=== PATIENT | female | born 1950 | race Caucasian/White ===

== ENCOUNTER → 2017-07-28 | Outpatient (CLI) | payer OTHER | LOC: RAD 07:46 | DX: Z12.31 Encounter for screening mammogram for malignant neoplasm of breast (principal) ==

== ENCOUNTER → 2018-02-13 | Outpatient (CLI) | payer OTHER | LOC: NUC 10:09 | DX: M85.839 Other specified disorders of bone density and structure, unspecified forearm (principal); E55.9 Vitamin D deficiency, unspecified ==

== ENCOUNTER → 2019-03-26 | Outpatient (CLI) | payer OTHER | LOC: MRI 07:08 | DX: M48.02 Spinal stenosis, cervical region (principal); M50.11 Cervical disc disorder with radiculopathy, high cervical region; M43.5X2 Other recurrent vertebral dislocation, cervical region ==

== ENCOUNTER → 2019-04-06 | Outpatient (CLI) | payer OTHER ==
[~2019-04-06] VITALS: Ht 165.1 cm; Wt 86.2 kg
[~2019-04-06] MED LIST: ARMODAFINIL50 MG PO; CALCIUM WITH V1 EAC1 PO; CINNAMON500 MG PO; CLONIDINE HCL0.1 M1 PO; FLEXERIL PO; GLYBURIDE 5 MG T5 M1 PO; IRON160 M1 PO; JANUMET 50-1,01 EACH PO; LEVO-T75 MCG; LISINOPRIL-HCT1 EACH PO; MAGNESIUM250 M1 PO; MELOXICAM7.5 MG PO; NABUMETONE 500500 M1 PO; NEURONTIN 300M300 M2 PO; OCUVITE TABLET1 EAC1 PO; SONATA5 M1 PO; UNICOMPLEX M TA1 TA1 PO; VITAMIN C500 M2 PO; VITAMIN D3250 MC1 PO; VITAMIN D34000 UNIT PO; VYTORIN 10-201 EACH PO; ZINC50 M1 PO
[2019-04-06 08:24] VITALS: BP 110/79
--- NOTE | 2019-04-06 08:49 | NUR ---
Pain Clinic Assessment: 1. History of Osteoarthritis: BILATERAL KNEES SHOULDERS History of Rheumatoid Arthritis: 2. Height: 5 ft. 5 in. 165.1 cm. Weight: 190.0 lb. oz. 86.184 kg. Patient's BMI: 31.6 3. Vital Signs: BP: 110/79 Pulse: 108 Resp: 16 Temp: 02 Sat: 97 ECG Mon: 4. Pain Intensity: 6 5. Fall Risk: Dizziness: Y Needs help standing or walking: N Fallen in the last 3 months: N Fall risk comments: 6. Patient on Blood Thinner: None 7. History of Hypertension: Y 8. Opioid Therapy greater than 6 weeks: N Opiate Contract Signed: 9. Risk Assessment Tool Provided: 1-LOW RISK 10. Functional Assessment Tool: 11. Recreational Drug Use: Never Drug Type: Tobacco Use: Former Smoker Tobacco Type: Amount or Packs/day: How Many Years: Alcohol Use: Yes Frequency: Special Occasions Quant:
--- NOTE | 2019-04-13 07:45 | HPC ---
[facility] [place] [address] PAIN MANAGEMENT CONSULTATION Name: CHILO BOWENS rIma Room #: REG [facility] Tina.#: [id number] Admission: 04/06/19 Attend Phys: Patricio Fong DO Discharge: Date of : 54 Report #: [id number] THIS REPORT FOR: cc: Glen Enciso MD, Kimberly A. MD Johnson, James E. DO ~ THIS REPORT FOR: //name// DATE OF SERVICE: 04/06/2019 CHIEF COMPLAINT: Right shoulder pain. HISTORY OF PRESENT ILLNESS: As you know, the patient is a very pleasant 68-year-old female who reports acute onset of right shoulder pain began on 12/06/2018. The patient has known cervical radiculopathy for which she has been dealing with symptoms for years. She states the pain that she began to experience in 11/2018 is very different from her typical cervical radicular symptoms. Pain is exacerbated with movement of the shoulder as well as trying to lift objects with the right arm. She is able to localize pain directly over the shoulder itself. She has discussed her case with her primary care after trialing [id number] medications for pain control. She did not see improvement with more conservative options and then was subsequently referred to undergo MRI of the cervical spine. The findings of the cervical spine were such that the patient was referred to our clinic to discuss treatment options. The patient indicates the pain is continuous with periodic exacerbations of symptoms. She describes the pain as shooting, aching, and stabbing. She does not describe any numbness or tingling with this new onset of symptoms. She has had numbness and tingling in the past and this continues in her typical cervical radicular fashion. She places her current pain score 6/10, daily average is 7/10, worst pain has been is 9/10. The patient again states that her pain is exacerbated with lifting, reaching, and utilizing her right arm. Nothing appears to improve pain. She has been referred to our service to discuss treatment options for suspected cervical radiculopathy. PAST MEDICAL HISTORY: 1. Diabetes mellitus type 2. 2. Hypertension. 3. Thyroid disease. 4. Degenerative joint disease. 5. Osteoarthritis. 6. Insomnia. 7. Dyslipidemia. [address] [address] PAIN MANAGEMENT CONSULTATION Name: CHILO BOWENS Room #: REG ALINE Mcdowell#: [id number] Admission: 04/06/19 Attend Phys: Patricio Fong DO Discharge: Date of : 54 Report #: [id number] PAST SURGICAL HISTORY: 1. Arthroscopy of the left knee in 2001. 2. Thyroid lumpectomy in 2007. 3. Right knee arthroscopy 2019. SOCIAL HISTORY: The patient denies tobacco, IV, or illicit drug use. Admits to occasional alcohol beverage. 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 She is not in litigation in regards to pain. She is unaccompanied at today's visit. REVIEW OF SYSTEMS: Positive for headaches, wearing corrective eyewear, chronic sinus problems with rhinitis, heart trouble in the form of a murmur, nocturia, rash and itching, frequent and recurrent headaches, vestibular weakness, numbness and tingling sensations in the arms from chronic radiculopathy, head injury, thyroid disease, non-insulin dependent diabetes. All other review of systems negative per 12-point review of systems other than those listed in history of present illness. Pain impact score 38 of 70 indicating moderate interference of daily activities secondary to pain. ALLERGIES: No reported drug allergies. CURRENT MEDICATIONS: Vytorin 10/20 one tab per day, vitamin D 50,000 units every other month, clonidine 0.1 mg once a day, lisinopril 10 mg per day, meloxicam 7.5 mg once a day, levothyroxine 137 mcg per day, zaleplon 5 mg once a day, gabapentin 300 mg once a day, ____ 60 mg once a day, Janumet mg twice a day, cyclobenzaprine 10 mg once a day, glyburide 2.5 mg one-half tab per day, multivitamin 1 tab per day, vitamin C, vitamin D, iron, magnesium, zinc, Ocuvite, and cinnamon once a day. IMAGING: MRI of cervical spine obtained on 03/26/2019 shows extensive multilevel severe neural foraminal stenosis at C3-C4, C4-C5, C5-C6, C6-C7 with [id number] thecal sac stenosis at C3-C4, mild anterior subluxation of C3 on C4 of approximately 3 mm. Degenerative changes noted throughout the cervical spine. EMG of the upper extremities shows chronic radiculopathies involving the C5-C6 distribution. PHYSICAL EXAMINATION: VITAL SIGNS: Blood pressure 110/79, pulse 108, respiratory rate 16, and unlabored. The patient is 97% on room air. Height 5 feet 5 inches tall, weight 190 pounds, and BMI calculated 31.3. GENERAL: Well-developed, well-nourished, well-hydrated 68-year-old female, appearing stated age, placing current pain score at 6/10. HEENT: Normocephalic, atraumatic. Pupils are equal, round, reactive to light. [facility] [address] [place] [address] PAIN MANAGEMENT CONSULTATION Name: CHILO BOWENS [id number] Admission: 04/06/19 Attend Phys: Patricio Fong DO Discharge: Date of : 54 Report #: [id number] Extraocular muscles are intact. Sclerae nonicteric without injection. NEUROLOGIC: Cranial nerves 2-12 grossly intact. Speech fluent. The patient deemed a good historian. LUNGS: Clear, no wheeze, rhonchi or rales. CARDIOVASCULAR: Tachycardic. No appreciable gallop. Mild noted murmur. ABDOMEN: Soft, nontender, nondistended. EXTREMITIES: Show no clubbing, no cyanosis, and no edema. MUSCULOSKELETAL: The patient has palpatory tenderness over the right shoulder. Active and passive range of motion of the right shoulder causes intensification of pain. Abduction of the shoulder causes pain between approximately 60 degrees to 110 degrees. Liftoff test with hand behind the back causes an intrinsic shoulder pain. Cervical provocation testing is met with typical cervical pain. Spurling's test remains positive. Upper extremity strength appears symmetrical, though there is giveaway strength noted with biceps flexion on the right when compared to left due to generated pain in the shoulder. ASSESSMENT: 1. Right shoulder pain. 2. Right shoulder osteoarthritic changes. 3. Chronic cervical radiculopathy. 4. Displacement of cervical intervertebral disk with radiculopathy. 5. Severe neural foraminal stenosis of the cervical spine. 6. Central canal stenosis of the cervical spine. PLAN: 1. Based on today's physical exam and history, the patient has provided the description the patient uses in regards to pain. It would appear her symptoms are related more to mechanical forces in the right shoulder than a cervical radiculopathy. This is shown with the provocation testing done on the right shoulder when compared to left. Dermatomal distribution is not present in the shoulder. She does have typical radicular symptoms consistent with C5 and C6 dermatomes based on EMG, though these are chronic in nature and according to the patient are completely different pain signals than what she is experiencing in the shoulder with lifting and utilizing her right arm. We do not have imaging of the right shoulder to confirm the extent of Pathology that may be present, though the provocating examination would indicate intrinsic shoulder pathology. We discussed with the patient treatment options for her right shoulder pain today. The following was discussed with the patient. We discussed physical therapy, stretching exercises, and strengthening techniques as well as mobility techniques to increase range of motion. We discussed medication management using either topical agents directly to the shoulder or oral agents in the anti-inflammatory family to improve shoulder pain. We discussed intra-articular shoulder injections as an option for treatment and ultimately surgical repair. After reviewing the risks and benefits of all the proposed treatment options, the patient chose to undergo [address] [address] PAIN MANAGEMENT CONSULTATION Name: BOWENSCHILO B Room #: REG ALINE Mcdowell#: [id number] Admission: 04/06/19 Attend Phys: Patricio Fong DO Discharge: Date of : 54 Report #: [id number] intra-articular shoulder injection under fluoroscopic guidance. 2. Due to third green party payer restrictions, authorization will have to be obtained before the patient could undergo a right intra-articular shoulder injection. We will begin the authorization process immediately. We are hopeful to have this authorization done quickly and have the patient return to undergo the injection to determine if her symptoms will be amenable to injections within the right shoulder. 3. We have taken the liberty of starting the patient on nabumetone 500 mg dose 1 tab p.o. t.i.d. with meals. I have given the patient #90 tablets. We have advised the patient to watch for dyspepsia, worsening of blood pressure, and lower extremity edema with its use. If she notes any side effects, discontinue immediately and call for further instructions. 4. We did discuss with the patient the findings of her cervical MRI. It does appear she has chronic C5-C6 cervical radiculopathy, though given the findings on exam today, it would appear that she does have cervical radicular symptoms, which are present on a daily basis, but are unrelated to this current right shoulder pain. I do feel that she has both cervical radiculopathy, which has been chronic in nature and intrinsic right shoulder pathology likely due to arthritic changes and possible rotator cuff injury based on the testing today. We will keep you apprised of response to treatment for the right shoulder that is her most problematic pain generator at present. 5. We wish to thank Dr. Enciso for the referral of the patient to our clinic. We will keep you apprised of her response to treatment of both the right shoulder and cervical radiculopathy as we address each issue. Again, we wish to thank you for the opportunity to see the patient in consultation. <ELECTRONICALLY SIGNED> By: Patricio Fong DO 04/13/19 0745 [id number] Patricio Fong DO /nt
== END ==
LOC: PAIN 06:46
DX: M19.011 Primary osteoarthritis, right shoulder (principal); M50.11 Cervical disc disorder with radiculopathy, high cervical region; M48.02 Spinal stenosis, cervical region; E11.9 Type 2 diabetes mellitus without complications; I10 Essential (primary) hypertension; E07.89 Other specified disorders of thyroid; M19.90 Unspecified osteoarthritis, unspecified site; E78.5 Hyperlipidemia, unspecified; Z79.899 Other long term (current) drug therapy

== ENCOUNTER → 2019-04-14 | Outpatient (CLI) | payer OTHER ==
[~2019-04-14] VITALS: Ht 165.1 cm; Wt 88.3 kg
[2019-04-14 14:07] VITALS: BP 115/85
--- NOTE | 2019-04-14 14:24 | NUR ---
Pain Clinic Assessment: 1. History of Osteoarthritis: BILATERAL KNEES SHOULDERS History of Rheumatoid Arthritis: 2. Height: 5 ft. 5 in. 165.1 cm. Weight: 194.6 lb. oz. 88.270 kg. Patient's BMI: 32.4 3. Vital Signs: BP: 115/85 Pulse: 92 Resp: 14 Temp: 02 Sat: 98 ECG Mon: 4. Pain Intensity: 4-5 5. Fall Risk: Dizziness: Y Needs help standing or walking: N Fallen in the last 3 months: N Fall risk comments: 6. Patient on Blood Thinner: None 7. History of Hypertension: Y 8. Opioid Therapy greater than 6 weeks: N Opiate Contract Signed: 9. Risk Assessment Tool Provided: 1-LOW RISK 10. Functional Assessment Tool: 11. Recreational Drug Use: Never Drug Type: Tobacco Use: Former Smoker Tobacco Type: Amount or Packs/day: How Many Years: Alcohol Use: Yes Frequency: Monthly Quant: 1-2
--- NOTE | 2019-04-20 08:27 | HPC ---
[facility] [place] [address] [place] [address] PAIN MANAGEMENT CONSULTATION Name: CHILO BOWENS Room #: REG [facility].#: [id number] Admission: 04/14/19 Attend Phys: Patricio Fong DO Discharge: Date of : 54 Report #: [id number] THIS REPORT FOR: cc: Glen Enciso MD, Kimberly A. MD Johnson, James E. DO ~ DATE OF SERVICE: 04/14/2019 REFERRING PHYSICIAN: Dr. Glen Enciso. CHIEF COMPLAINT: Right shoulder pain. HISTORY OF PRESENT ILLNESS: As you know, the patient is a very pleasant 68-year-old female who was seen in consultation per the request of Dr. Glen Enciso on 04/06/2019. At that visit, she was being evaluated for cervical radiculopathy, though her right shoulder pain was believed to be due to right shoulder pathology. The physical exam as well as the descriptors the patient used led to a diagnosis of right shoulder pain due to osteoarthritis and possible rotator cuff injury. She returns today, having received authorization to undergo an intra-articular right shoulder injection under fluoroscopic guidance to address this pain issue. She has denied any injury or trauma that may have led to symptom development. She has had no changes in medication management since our visit of 04/06/2019. ALLERGIES: No drug allergies. CURRENT MEDICATIONS: Vytorin, vitamin D, clonidine, lisinopril, meloxicam, levothyroxine, zaleplon, gabapentin, Janumet, cyclobenzaprine, glyburide, vitamin C, vitamin D, iron, magnesium, zinc, Ocuvite and cinnamon, armodafinil 67 mg once a day. SOCIAL HISTORY: The patient denies tobacco, IV or illicit drug use. Admits to occasional alcohol beverage. 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 IMAGING: No new imaging available. PHYSICAL EXAMINATION: VITAL SIGNS: Blood pressure 115/85, pulse 92, respiratory rate 14 and unlabored. The patient is 98% on room air. Height 5 feet 5 inches tall, weight 194.6 pounds, BMI calculated 32.4. GENERAL: Well-developed, well-nourished, well-hydrated 68-year-old female, appearing stated age, placing current right shoulder pain at 4/10 to 5/10. HEENT: Normocephalic, atraumatic. Pupils equal, round, reactive to light. [address] [address] PAIN MANAGEMENT CONSULTATION Name: CHILO BOWENS Room #: REG [facility].#: [id number] Admission: 04/14/19 Attend Phys: Patricio Fong DO Discharge: Date of : 54 Report #: [id number] EXTREMITIES: Show no clubbing, no cyanosis and no edema. MUSCULOSKELETAL: The patient again has palpatory tenderness over the right shoulder. Active and passive range of motion of the right shoulder causes intensification of pain. Abduction of the shoulder between approximately 50 to 60 degrees, all the way to 110 degrees cause intensification of pain. Liftoff test with hand behind the back causes shoulder pain. ASSESSMENT: 1. Right shoulder pain. 2. Right shoulder osteoarthritic changes. 3. Right shoulder rotator cuff injury. 4. Chronic intractable pain. 5. Chronic cervical radiculopathy. 6. Displacement of cervical intervertebral disk with previous radiculopathy. 7. Severe neural foraminal stenosis of the cervical spine. 8. Central canal stenosis of the cervical spine. PLAN: 1. The patient returns today in followup visit, having received authorization to undergo right intra-articular shoulder injection under fluoroscopic guidance. It does appear again from today's physical exam, the history she provides and the descriptors she uses that the shoulder is the source of recurrent pain. Though she does have underlying cervical radiculopathy, this is a pain that she indicates is not her typical cervical radicular symptoms that is well tolerated. She and I at last visit discussed treatment options for right shoulder pain, and she chose to undergo a right intra-articular shoulder injection. We have achieved this authorization today. - The patient has been advised of the risks and benefits of a right intra-articular shoulder injection. These risks include but are not necessarily limited to bleeding, bruising, infection, worsening pain, no relief of pain; also risk of temporary or permanent muscle weakness, temporary or permanent nerve damage, possible joint destruction and . The patient states understood and wished to proceed. 2. No medication changes made at today's visit. The patient will continue current medical therapy as previously prescribed. 3. We will see the patient back in followup visit on an as needed basis to address her right shoulder pain or any cervical radicular symptoms noted. PROCEDURE PERFORMED: Right intra-articular shoulder injection under fluoroscopic guidance. PROCEDURE IN DETAIL: After obtaining written consent, the patient was taken back to the fluoroscopy suite, placed in a supine position. The image intensifier/fluoroscopic imaging camera was brought into position over the right shoulder, and imaging was obtained in an AP fashion. The area overlying the site of injection was then marked with a marker and then prepped sterilely with [address] [address] PAIN MANAGEMENT CONSULTATION Name: CHILO BOWENS Room #: REG [facility]#: [id number] Admission: 04/14/19 Attend Phys: Patricio Fong DO Discharge: Date of : 54 Report #: [id number] chlorhexidine. A 27-gauge 1-1/4 inch needle was then used to anesthetize the skin and subcutaneous tissue with 3 mL of 1% lidocaine. A 27-gauge 1-1/4 inch needle was then used to advance into the right shoulder. Needle was advanced until reaching the proximal head of the humerus. Once reaching the osseous structure, the needle was retracted approximately 1 mm and aspiration noted to be negative for heme. After negative aspiration for heme, 3 mL of a solution containing 1 mL 40 mg per mL, 40 mg total triamcinolone along with 2 mL bupivacaine 0.5% was injected slowly. Needle was then retracted approximately half way, flushed with 1 mL of 1% lidocaine and then removed. Sterile bandage was placed over the injection site. There were no new motor deficits present in the right upper extremity following procedure. The patient tolerated procedure well, carefully escorted to recovery room in stable condition. No apparent complications. After meeting discharge criteria, the patient discharged home. <ELECTRONICALLY SIGNED> By: Patricio Fong DO 04/20/19 0827 [id number] Patricio Fong, DO /nt
== END | disposition home or self-care (01) ==
LOC: PAIN 07:00
DX: M25.511 Pain in right shoulder (principal); M19.011 Primary osteoarthritis, right shoulder; G89.29 Other chronic pain; M75.101 Unspecified rotator cuff tear or rupture of right shoulder, not specified as traumatic; M50.10 Cervical disc disorder with radiculopathy, unspecified cervical region; M48.02 Spinal stenosis, cervical region; Z87.891 Personal history of nicotine dependence; Z79.899 Other long term (current) drug therapy

== ENCOUNTER → 2019-11-03 | Outpatient (CLI) | payer OTHER ==
[~2019-11-03] VITALS: Ht 170.2 cm; Wt 86.6 kg
[2019-11-03 13:53] VITALS: BP 121/86
--- NOTE | 2019-11-03 13:58 | NUR ---
Pain Clinic Assessment: 1. History of Osteoarthritis: BILATERAL KNEES SHOULDERS History of Rheumatoid Arthritis: Not Applicable 2. Height: 5 ft. 7 in. 170.2 cm. Weight: 191.0 lb. oz. 86.637 kg. Patient's BMI: 29.9 3. Vital Signs: BP: 121/86 Pulse: 78 Resp: 16 Temp: 02 Sat: 98 ECG Mon: 4. Pain Intensity: 5 5. Fall Risk: Dizziness: N Needs help standing or walking: N Fallen in the last 3 months: N Fall risk comments: 6. Patient on Blood Thinner: None 7. History of Hypertension: Y 8. Opioid Therapy greater than 6 weeks: N Opiate Contract Signed: 9. Risk Assessment Tool Provided: 1-LOW RISK 10. Functional Assessment Tool: 11. Recreational Drug Use: Never Drug Type: Tobacco Use: Former Smoker Tobacco Type: Amount or Packs/day: How Many Years: Alcohol Use: Yes Frequency: Weekly Quant: 4-6
--- NOTE | 2019-11-09 10:42 | HPC ---
[facility] [place] [address] PAIN MANAGEMENT CONSULTATION Name: CHILO BOWENS Room #: [facility] [id number] Admission: 11/03/19 Attend Phys: Patricio Fong DO Discharge: Date of : 54 Report #: [id number] THIS REPORT FOR: cc: Lazara Cornejo MD, Kimberly A. MD Johnson, James E. DO ~ DATE OF SERVICE: 11/03/2019 REFERRING PHYSICIAN: Glen Enciso MD CHIEF COMPLAINT: Right shoulder pain. HISTORY OF PRESENT ILLNESS: As you know, the patient is a very pleasant 69-year-old female who has returned today in followup visit with recurrence of right shoulder pain. She underwent an intraarticular shoulder injection at her last visit with 100% improvement in overall pain lasting for 4 months. She returns today in followup visit to undergo next in the series of intraarticular shoulder injections. She is placing pain score 5/10. She describes the pain as shooting, sharp, stabbing and aching, exacerbated with movement, lifting and reaching. She returns today for intraarticular right shoulder injection. ALLERGIES: No known drug allergies. CURRENT MEDICATIONS: Nabumetone 500 mg twice a day, cinnamon bark 500 mg once a day, Ocuvite 1 tablet per day, zinc 50 mg per day, magnesium 250 mg per day, calcium carbonate 1 tab per day, iron supplement 160 mg once a day, ascorbic acid 500 mg twice a day, multivitamin 1 tab per day, cyclobenzaprine 10 mg b.i.d., Janumet mg __ twice a day, gabapentin 300 mg p.o. q.a.m., Sonata 5 mg once a day, levothyroxine 75 mcg per day, lisinopril/hydrochlorothiazide 10/12.5 mg once a day, clonidine 0.5 mg once a day, cholecalciferol 4000 units per day, and Vytorin 12/06 1 tab per day. SOCIAL HISTORY: The patient denies tobacco, IV or illicit drug use. She admits to occasional alcohol beverage. She is now retired. She is unaccompanied at today's visit. IMAGING: No new imaging available. PQRS: The patient has arthritic changes of the bilateral shoulders, cervical spine, lumbar spine. No rheumatoid arthritis. She is placing pain intensity today at 5/10. She is not a fall risk, has not had a fall in last 3 months. She is not on blood thinners, but is treated for hypertension. She is not on chronic opioids, has a low opioid addiction potential. Pain impact today is 30/70, moderate interference of daily activities secondary to pain. [address] [address] PAIN MANAGEMENT CONSULTATION Name: CHILO BOWENS Room #: REG [facility]#: [id number] Admission: 11/03/19 Attend Phys: Patricio Fong DO Discharge: Date of : 54 Report #: [id number] PHYSICAL EXAMINATION: VITAL SIGNS: Blood pressure 121/86, pulse is 78, respiratory rate 16 and unlabored. The patient is 98% on room air. Height 5 feet 7 inches tall, weight 191 pounds, BMI calculated 29.9. GENERAL: Well-developed, well-nourished, well-hydrated, 69-year-old female appearing stated age, pain is rated today 5/10. HEENT: Normocephalic, atraumatic. Pupils equal, round and reactive. EXTREMITIES: Show no clubbing, no cyanosis, no edema. MUSCULOSKELETAL: Upper extremity strength appears symmetrical 5/5. Muscle bulk and tone is equal and symmetrical. There is giveaway weakness noted with abduction of the shoulder on the right when compared to left. Pain is elicited with this maneuver at about [address] way to about 110. Liftoff test with hand behind the back causes shoulder pain consistent with a rotator cuff injury. ASSESSMENT: 1. Right shoulder pain. 2. Right shoulder osteoarthritic changes. 3. Right shoulder rotator cuff injury. 4. Chronic intractable pain. 5. History of cervical radiculopathy. 6. Severe neural foraminal stenosis of cervical spine. 7. Central canal stenosis of cervical spine. 8. Cervical spondylosis with radiculopathy. PLAN: 1. The patient has returned today in followup visit having noted 4 months of improvement with the intraarticular shoulder injection provided at last visit. She is very pleased with response to this injection, returning today in followup visit to undergo next in the series. She denies new injury or trauma that may have led to symptom reoccurrence. She has been advised of the risks and benefits of this procedure. These risks include but are not necessarily limited to bleeding, bruising, infection, worsening pain, no relief of pain, also risk of temporary or permanent muscle weakness, temporary or permanent nerve damage, possible joint destruction and . The patient states understood and wished to proceed. 2. No medication changes made at today's visit. The patient will continue current medical therapy as prior prescribed. 3. We will see the patient back in followup visit on an as needed basis for possible next in the series of right intraarticular shoulder injections. We are hopeful the patient will see good and prolonged benefit with today's procedure to address right shoulder pain. PROCEDURE: Right intraarticular shoulder injection under fluoroscopic guidance. DESCRIPTION OF PROCEDURE: After obtaining written consent, the patient was [facility] [place] [address] PAIN MANAGEMENT CONSULTATION Name: CHILO BOWENS Room #: REG [facility]#: [id number] Admission: 11/03/19 Attend Phys: Patricio Fong DO Discharge: Date of : 54 Report #: [id number] taken back to fluoroscopy suite, placed in supine position. The image intensifier/C arm was brought into position over the right shoulder and AP imaging was obtained. The area overlying the injection site was then marked with a skin marker then prepped sterilely with chlorhexidine. A 27-gauge 1-1/4 inch needle was then used to anesthetize skin and subcutaneous tissue with 3 mL of 1% lidocaine. A second 27-gauge 1-1/4 inch needle was then used to advance into the right shoulder. Needle was advanced until reaching the proximal head of the humerus. Once reaching the osseous structure, the needle was then retracted approximately 1 mm. After negative aspiration for heme, 3 mL of a solution containing 1 mL, 40 mg per mL, 40 mg total triamcinolone, 2 mL bupivacaine 0.5% was injected slowly. Needle was retracted approximately half way, flushed with 1 mL of 1% lidocaine and then removed. Sterile bandage placed over injection site. No new motor deficits present in the upper extremities following procedure. The patient tolerated procedure well, carefully escorted to recovery room in stable condition. No apparent complication. After meeting discharge criteria, the patient discharged home. <ELECTRONICALLY SIGNED> By: Patricio Fong DO 11/09/19 [id number] Patricio Fong DO /nt
== END | disposition home or self-care (01) ==
LOC: PAIN 10-26 13:56
PROVIDERS: ATTEND Anesthesiology Pain Medicine
DX: M25.511 Pain in right shoulder (principal); M19.011 Primary osteoarthritis, right shoulder; G89.29 Other chronic pain; I10 Essential (primary) hypertension; M19.90 Unspecified osteoarthritis, unspecified site; S46.001A Unspecified injury of muscle(s) and tendon(s) of the rotator cuff of right shoulder, initial encounter; M48.02 Spinal stenosis, cervical region; M47.22 Other spondylosis with radiculopathy, cervical region; Z98.890 Other specified postprocedural states; Z79.899 Other long term (current) drug therapy; Z87.891 Personal history of nicotine dependence; X58.XXXA Exposure to other specified factors, initial encounter; Y93.9 Activity, unspecified; Y92.89 Other specified places as the place of occurrence of the external cause; Y99.8 Other external cause status

== ENCOUNTER → 2020-04-05 | Outpatient (CLI) | payer OTHER, MEDICARE ==
[~2020-04-05] VITALS: Ht 170.2 cm; Wt 82.5 kg
[~2020-04-05] MED LIST changes: +HYDROCODON-ACE1 EAC7 PO; +NABUMETONE 500500 M2 PO
--- NOTE | ~2020-04-05 | HPC ---
[facility] [place] [address] PAIN MANAGEMENT CONSULTATION Name: CHILO BOWENS Room #: REG [facility] Tina.#: [id number] Admission: 04/05/20 Attend Phys: Patricio Fong DO Discharge: Date of : 54 Report #: [id number] THIS REPORT FOR: cc: Lazara Cornejo MD, Kimberly A. MD Johnson, James E. DO ~ DATE OF SERVICE: 04/05/2020 REFERRING PHYSICIAN: Glen Enciso M.D. CHIEF COMPLAINT: Right greater trochanteric bursa pain. HISTORY OF PRESENT ILLNESS: As you know, the patient is a very pleasant 69-year-old female who has undergone a right intra-articular shoulder injection at her last visit with excellent improvement in overall pain. The patient is experiencing decrease in pain of 75% with the intra-articular shoulder injection. Unfortunately, she continues to experience right greater trochanteric bursitis. She is placing her current pain score at approximately 5/10. She returns today in followup visit to discuss injection to address the bursitis pain on the right. She denies injury or trauma. ALLERGIES: No known drug allergies. CURRENT MEDICATIONS: See chart. SOCIAL HISTORY: The patient denies tobacco, IV or illicit drug use. Admits to an occasional alcohol beverage. She is retired, unaccompanied today. IMAGING: No new imaging available. PQRS: The patient has known arthritic changes of bilateral shoulders, cervical spine, lumbar spine. No rheumatoid arthritis. She is placing current pain intensity at 5/10, not a fall risk, has not had a fall in last 3 months. She is not on blood thinners, but is treated for hypertension. She is not on opioids, has a low opioid addiction potential. Pain impact is 30/70, moderate interference of daily activities secondary to pain. PHYSICAL EXAMINATION: VITAL SIGNS: Blood pressure 127/98, pulse is 116, respiratory rate 20 and unlabored. The patient is 98% on room air. Height 5 feet 7 inches tall, weight 181.8 pounds, BMI calculated 28.5. GENERAL: Well-developed, well-nourished, well-hydrated 69-year-old female appearing stated age, pain is rated around 5/10. HEENT: Normocephalic, atraumatic. Pupils are round. Speech is fluent. The patient is wearing a mask in compliance with COVID-19 regulations. EXTREMITIES: Show no clubbing, no cyanosis, no edema. [facility] [address] [place] [address] PAIN MANAGEMENT CONSULTATION Name: CHILO BOWENS Room #: [facility]#: [id number] Admission: 04/05/20 Attend Phys: Patricio Fogn DO Discharge: Date of : 54 Report #: [id number] MUSCULOSKELETAL: The patient has tenderness to palpation over the greater trochanteric bursa on the right, negative left. Deep palpation in area causes intensification of pain. Dinora's test is negative for any intrinsic hip pathology. ASSESSMENT: 1. Right greater trochanteric bursitis. 2. Right hip pain. 3. Chronic intractable pain. 4. Chronic right shoulder pain secondary to osteoarthritis and rotator cuff injury. PLAN: 1. The patient returns today in followup visit to address her right greater trochanteric bursitis. We discussed treatment options with the patient at our last visit to address this issue and she has returned today to further discuss this issue. She is placing her current pain score at around 5/10. She is reporting pain is exacerbated with certain activities and lying on her side. She returns today to undergo treatment for right greater trochanteric bursitis. The patient and I did discuss the treatment options available for greater trochanteric bursitis. These would include physical therapy, stretching exercises and mobility techniques as well as addressing the iliotibial band. We discussed medication management utilizing oral steroids and a nonsteroidal anti-inflammatory. We discussed intrabursal injection and ultimately bursectomy. After reviewing the risks and benefits of all proposed treatment options, the patient chose to undergo a right intrabursal injection of the greater trochanteric bursa. 2. The patient was advised risks and benefits of a greater trochanteric bursa injection. These risks include but are not necessarily limited to bleeding, bruising, infection, worsening pain, no relief of pain, also risk of temporary or permanent muscle weakness, temporary or permanent nerve damage and possible allergic reaction to medications. The patient states understood and wished to proceed. 3. No medication changes made at today's visit. The patient will continue current medical therapy as prior prescribed. We did renew the patient's nabumetone 500 mg dose. She is not to take any other nonsteroidal anti-inflammatory with this therapy. 4. We will see the patient back in followup visit on an as needed basis to either address the right shoulder pain that she has for that is residual or possibly a second treatment for the greater trochanteric bursa on the right. PROCEDURE NOTE DESCRIPTION OF PROCEDURE: Right greater trochanteric bursa injection under [facility] [address] [place] [address] PAIN MANAGEMENT CONSULTATION Name: CHILO BOWENS Room #: REG [facility]steadHer[facility]#: [id number] Admission: 04/05/20 Attend Phys: Patricio Fong DO Discharge: Date of : 54 Report #: [id number] fluoroscopic guidance. After obtaining written consent, the patient was placed in a left lateral decubitus position. The patient was lying on the unaffected side with lower hip and knee flexed and the upper hip and knee extended. The greater trochanteric bursa was palpated using a single finger and marked with a marker. The area was then prepped and draped in aseptic fashion using chlorhexidine. AP imaging was obtained to confirm the position of the greater trochanter. A 27-gauge 1-1/4 inch needle was then used to anesthetize skin and subcutaneous tissue with 3 mL of 1% lidocaine. A 22-gauge 3-1/2 inch spinal needle with bent tip was advanced towards the greater trochanter under fluoroscopic imaging. Needle was advanced until reaching the greater trochanter and retracted 1 mm. After negative aspiration for heme, 0.5 mL of Omnipaque injected demonstrating an excellent bursal gram. After negative aspiration for heme, 4 mL of solution containing 1 mL 40 mg per mL, 40 mg total triamcinolone and 3 mL of bupivacaine 0.5% injected slowly. Needle retracted correction, flushed with 1 mL of 1% lidocaine, then removed. Sterile bandage placed over injection site. No new motor deficits present in the lower extremity following procedure. The patient tolerated procedure well, carefully escorted to recovery room in stable condition. No apparent complications. After meeting discharge criteria, the patient discharged home. By: [id number] Patricio Fong DO /nt
[2020-04-05 12:33] VITALS: BP 127/98
--- NOTE | 2020-04-05 12:42 | NUR ---
Pain Clinic Assessment: 1. History of Osteoarthritis: BILATERAL KNEES SHOULDERS History of Rheumatoid Arthritis: Not Applicable 2. Height: 5 ft. 7 in. 170.2 cm. Weight: 181.8 lb. oz. 82.464 kg. Patient's BMI: 28.5 3. Vital Signs: BP: 127/98 Pulse: 116 Resp: 20 Temp: 02 Sat: 98 ECG Mon: 4. Pain Intensity: 5 5. Fall Risk: Dizziness: N Needs help standing or walking: N Fallen in the last 3 months: N Fall risk comments: 6. Patient on Blood Thinner: None 7. History of Hypertension: Y 8. Opioid Therapy greater than 6 weeks: N Opiate Contract Signed: 9. Risk Assessment Tool Provided: 1-LOW RISK 10. Functional Assessment Tool: 11. Recreational Drug Use: Never Drug Type: Tobacco Use: Former Smoker Tobacco Type: Amount or Packs/day: How Many Years: Alcohol Use: Yes Frequency: Quant:
== END | disposition home or self-care (01) ==
LOC: PAIN 03-28 08:31
PROVIDERS: ATTEND Anesthesiology Pain Medicine
DX: M70.61 Trochanteric bursitis, right hip (principal); M25.551 Pain in right hip; G89.29 Other chronic pain; M25.511 Pain in right shoulder; I10 Essential (primary) hypertension; M19.90 Unspecified osteoarthritis, unspecified site; M19.011 Primary osteoarthritis, right shoulder; Z98.890 Other specified postprocedural states; Z79.899 Other long term (current) drug therapy